=== PATIENT | female | born 1985 | race Caucasian/White ===

== ENCOUNTER 2017-04-14 23:53 | Emergency (ER) | payer SELFPAY ==
[~2017-04-14] VITALS: Ht 170.2 cm; Wt 96.0 kg
[2017-04-15 00:01] VITALS: Ht 170.2 cm; Wt 96.0 kg
[2017-04-15] MEDS ORDERED: CEFAZOLIN 1 GM INJ IM ONE (02:30)
[2017-04-15] MEDS ORDERED: DIPHTH/TET/ACEL PERTUSS (ADULT) 0.5 ML VIAL IM* ONE (02:30)
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
--- NOTE | 2017-04-15 04:50 | RADRPT ---
PROCEDURE: XR Forearm. CLINICAL INDICATION: Left forearm injury, laceration TECHNIQUE: AP and lateral views of the left forearm were obtained. COMPARISON: No prior studies are available for comparison. FINDINGS: There is normal mineralization and alignment. No acute fracture or osseous lesion is identified. Soft tissue defect dorsal aspect of the proximal to mid forearm. No radiopaque foreign body is seen. IMPRESSION: Soft tissue defect dorsal aspect of the proximal to mid forearm. RPTAT: HJES .Chase Lee MD, MD Date Time Electronically viewed and signed by .Chase Lee MD, MD on 04/15/2017 04:50 .S/
[2017-04-15] MEDS ORDERED: CEPH-443 PO (05:07)
[2017-04-15] MEDS ORDERED: IBUP-1542 PO (05:07)
== END 2017-04-15 05:10 | disposition home or self-care (01) ==
LOC: FTE 23:53
DX: S51.812A Laceration without foreign body of left forearm, initial encounter (principal); V18.4XXA Pedal cycle driver injured in noncollision transport accident in traffic accident, initial encounter
CPT/HCPCS: 12001; 73090; 90471; 90715; 99283; J0690